=== PATIENT | male | born 1980 | race African-American/Black ===

== ENCOUNTER 2022-05-08 05:40 | Emergency (ER) | payer OTHER ==
[~2022-05-08] VITALS: Ht 172.7 cm; Wt 81.8 kg
[2022-05-08] MEDS ORDERED: KETOROLAC TROMETHAMINE 60 MG/2 ML VIAL IM ONE (09:30)
[2022-05-08] MEDS ORDERED: IBUP-2070 PO (12:12)
[2022-05-08 12:15] VITALS: BP 131/64
== END 2022-05-08 12:34 | disposition home or self-care (01) ==
LOC: EMS 05:42
DX: S39.012A Strain of muscle, fascia and tendon of lower back, initial encounter (principal); X58.XXXA Exposure to other specified factors, initial encounter; Y93.89 Activity, other specified; Y92.89 Other specified places as the place of occurrence of the external cause; Y99.8 Other external cause status
CPT/HCPCS: 99283; 81002; 96372; J1885

== ENCOUNTER 2022-06-27 20:39 | Emergency (ER) | payer OTHER ==
[~2022-06-27] VITALS: Ht 172.7 cm; Wt 81.8 kg
[~2022-06-27 20:39] MED LIST: IBUP-2070 PO
[2022-06-27 20:54] VITALS: BP 136/83
[2022-06-27] MEDS ORDERED: IBUP-2070 PO ×2 (22:13→22:35)
[2022-06-27] MEDS ORDERED: CYCL-448 PO ×2 (22:13→22:35)
== END 2022-06-27 23:18 | disposition home or self-care (01) ==
LOC: EMS 20:41
DX: S13.4XXA Sprain of ligaments of cervical spine, initial encounter (principal); F10.20 Alcohol dependence, uncomplicated; V49.9XXA Car occupant (driver) (passenger) injured in unspecified traffic accident, initial encounter; Y93.89 Activity, other specified; Y92.89 Other specified places as the place of occurrence of the external cause; Y99.8 Other external cause status
CPT/HCPCS: 99283; Z7502

== ENCOUNTER 2022-09-03 10:31 | Emergency (ER) | payer OTHER ==
[~2022-09-03 10:31] MED LIST changes: +CYCL-448 PO; +IBUP-1492 PO; -IBUP-2070 PO
[2022-09-03 11:03] LABS: COVID AG,FIA SOURCE NASAL SWAB
[2022-09-03 11:26] LABS: INFLUENZA TYPE A NEGATIVE FOR TYPE A (NEGATIVE); INFLUENZA TYPE B NEGATIVE FOR TYPE B (NEGATIVE)
[2022-09-03 11:40] VITALS: BP 133/80
[2022-09-03] MEDS ORDERED: IBUPROFEN 600 MG TABLET PO ONE (11:45)
== END 2022-09-03 11:48 | disposition home or self-care (01) ==
LOC: EMS 10:49
DX: B34.9 Viral infection, unspecified (principal); Z20.822 Contact with and (suspected) exposure to COVID-19
CPT/HCPCS: 87804; 99283

== ENCOUNTER 2023-07-07 05:03 | Emergency (ER) | payer OTHER ==
[~2023-07-07] VITALS: Ht 172.7 cm; Wt 81.8 kg
[2023-07-07 05:09] VITALS: TEMP 98.7
[2023-07-07 06:27] LABS: BASOPHILS % (AUTO) 1.7 % (0.0-2.0); EOSINOPHILS % (AUTO) 0.3 % (1.0-6.0); HEMATOCRIT 39.1 % (41-53); HEMOGLOBIN 14.1 g/dL (13.5-17.5); LYMPHOCYTES % (AUTO) 21.3 % (22.0-44.0); MEAN CORPUSCULAR HEMOGLOBIN 29.4 pg (26.0-34.0); MEAN CORPUSCULAR VOLUME 82 fL (80-100); MONOCYTES # (AUTO) 0.4 K/uL (0.1-1.0); MONOCYTES % (AUTO) 9.4 % (2.0-9.0); NEUTROPHILS # (AUTO) 3.2 K/uL (1.8-7.7); NEUTROPHILS % (AUTO) 67.3 % (40.0-70.0); PLATELET COUNT (AUTO) 199 K/uL (150-450); RED BLOOD CELL COUNT(AUTO) 4.79 MIL/uL (4.50-5.90); RED CELL DISTRIBUTION WIDTH 13.3 % (11.5-14.5); WHITE BLOOD COUNT (AUTO) 4.7 K/uL (4.5-11.0)
[2023-07-07 06:49] LABS: B-TYPE NATRIURETIC PEPTIDE 7 pg/mL (0-100)
[2023-07-07 07:09] LABS: ALANINE AMINOTRANSFERASE 33 U/L (12-78); ALBUMIN 3.9 g/dL (3.4-5.0); ALKALINE PHOSPHATASE 52 U/L (46-116); ANION GAP 4 mmol/L (8-16); ASPARTATE AMINOTRANSFERASE 17 U/L (15-37); BILIRUBIN,TOTAL 1.4 mg/dL (0.1-1.0); CARBON DIOXIDE 30 mmol/L (22-29); CHLORIDE 91 mmol/L (98-107); CREATININE 0.86 mg/dL (0.60-1.30); GLOMERULAR FILTR. RATE CALC > 60 mL/min (>60); GLUCOSE,RANDOM 133 mg/dL (70-110); SODIUM SERUM 125 mmol/L (136-145); TOTAL PROTEIN, SERUM 7.1 g/dL (6.4-8.2); UREA NITROGEN, BLOOD 6 mg/dL (7-18)
[2023-07-07 07:15] LABS: TROPONIN I-HIGH SENSITIVITY 5 ng/L (<76)
[2023-07-07] MEDS ORDERED: POTASSIUM CHLORIDE 20 MEQ ER TABLET PO ONE (08:30)
[2023-07-07] MEDS ORDERED: SODIUM CHLORIDE 0.9% 1,000 ML IV ONE (08:30)
[2023-07-07 09:41] LABS: COVID AG,FIA SOURCE NASAL SWAB
[2023-07-07 09:52] LABS: APPEARANCE,URINE CLEAR (CLEAR); BILIRUBIN,URINE NEGATIVE (NEGATIVE); COLOR,URINE COLORLESS (YELLOW); GLUCOSE, URINE (UA) NEGATIVE (NEGATIVE); KETONES,URINE NEGATIVE (NEGATIVE); LEUKOCYTE ESTERASE ,URINE NEGATIVE (NEGATIVE); NITRATE,URINE NEGATIVE (NEGATIVE); OCCULT BLOOD,URINE NEGATIVE (NEGATIVE); PROTEIN,URINE NEGATIVE (NEGATIVE); SPECIFIC GRAVITIY, URINE 1.002 (1.003-1.030); UROBILINOGEN,URINE <=1.0 mg/dL (<=1.0)
[2023-07-07 10:09] LABS: SARS-COV2 (COVID) ANTIGEN,FIA Negative (Negative)
[2023-07-07 10:11] LABS: INFLUENZA TYPE A NEGATIVE FOR TYPE A (NEGATIVE); INFLUENZA TYPE B POSITIVE FOR TYPE B (NEGATIVE)
[2023-07-07 11:32] VITALS: BP 134/84; PULSE 88; RESP 18
== END 2023-07-07 13:49 | disposition short-term general hospital (02) ==
LOC: EMS 05:06
DX: E87.1 Hypo-osmolality and hyponatremia (principal); E87.79 Other fluid overload; E87.6 Hypokalemia; Z20.822 Contact with and (suspected) exposure to COVID-19
CPT/HCPCS: 99285; 96360; 71045; 87426; 80053; 83930; 81003; 83880; 84300; 84484; 85025; 87804; 36415; 93005; J7030

== ENCOUNTER 2024-09-02 22:38 | Emergency (ER) | payer OTHER ==
[~2024-09-02] VITALS: Ht 172.7 cm; Wt 81.8 kg
[2024-09-02 22:48] VITALS: BP 140/77; PULSE 96; RESP 18; TEMP 101.7; O2SAT 96
[2024-09-03 00:08] LABS: COVID AG,FIA SOURCE NASAL SWAB
[2024-09-03 00:29] LABS: SARS-COV2 (COVID) ANTIGEN,FIA Negative (Negative)
[2024-09-03 00:39] LABS: RAPID GROUP A STREP NEGATIVE (NEGATIVE)
[2024-09-03 00:44] LABS: INFLUENZA TYPE B NEGATIVE FOR TYPE B (NEGATIVE)
[2024-09-03 00:57] LABS: INFLUENZA TYPE A POSITIVE FOR TYPE A (NEGATIVE)
[2024-09-03] MEDS ORDERED: LOPE-232 PO (03:18)
[2024-09-03] MEDS ORDERED: GUAIFDM PO (03:18)
[2024-09-03] MEDS ORDERED: IBUP-1554 PO (03:18)
[2024-09-03] MEDS ORDERED: ACET-66 PO (03:18)
[2024-09-03] MEDS: GuaiFENesin/D-METHORPHAN [SUGAR-FREE] 200-20MG/10 ML SYRUP UDCUP PO ONE (04:16)
[2024-09-03] MEDS: DIPHENOXYLATE/ATROP 2.5-0.025 MG TABLET PO ONE (04:17)
[2024-09-03] MEDS: ACETAMINOPHEN 500 MG TABLET PO ONE (04:17)
[2024-09-03] MEDS: IBUPROFEN 600 MG TABLET PO ONE (04:17)
== END 2024-09-03 08:09 | disposition home or self-care (01) ==
LOC: EMS 22:40
DX: J10.1 Influenza due to other identified influenza virus with other respiratory manifestations (principal); J20.9 Acute bronchitis, unspecified; R11.0 Nausea; Z20.822 Contact with and (suspected) exposure to COVID-19
CPT/HCPCS: 87430; 87804; 99284; Z7502; Z7610